=== PATIENT | female | born 1940 | race Caucasian/White ===

== ENCOUNTER 2017-01-11 06:11 | Emergency (ER) | payer MEDICARE, OTHER ==
[2017-01-11 06:11] VITALS: BP 165/71
--- NOTE | 2017-01-11 06:19 | PHYS DOC ---
Adult General Chief Complaint Chief Complaint: MECHANICAL FALL HPI HPI Patient is a 76 year old female who presents with sure pain after fall. She got out of the shower the lights were off and she is walking back to her bed when she tripped on a cane and fell landing on her right shoulder. She complains of pain around her shoulder. She denies any loss of consciousness, she denies a headache she denies hitting her head. She has chronic back pain and is on a fentanyl patch. She does not have a primary care physician as she just moved from [place] to [place]. She presents to the ER via EMS and her currently is at bedside. Her heart rates in the 50s and she states normally is in 50s to 60s. Review of Systems Review of Systems Constitutional: Denies fever or chills [] Eyes: Denies change in visual acuity, redness, or eye pain [] HENT: Denies nasal congestion or sore throat [] Respiratory: Denies cough or shortness of breath [] Cardiovascular: No additional information not addressed in HPI [] GI: Denies abdominal pain, nausea, vomiting, bloody stools or diarrhea [] : Denies dysuria or hematuria [] Musculoskeletal: Denies back pain, positive for right shoulder pain Integument: Denies rash or skin lesions [] Neurologic: Denies headache, focal weakness or sensory changes [] Endocrine: Denies polyuria or polydipsia [] All other systems were reviewed and found to be within normal limits, except as documented in this note. Current Medications Current Medications Current Medications Medications (Trade) Dose Ordered Sig/Thierry Start Time Stop Time Status Last Admin Dose Admin Acetaminophen/ Hydrocodone Bitart (Lortab 5/325) 2 tab 1X ONCE 01/11/17 07:30 01/11/17 07:31 DC 01/11/17 07:12 2 TAB Allergies Allergies Allergies Coded Allergies Type Severity Reaction Last Updated Verified naproxen Allergy Unknown 01/11/17 Yes Physical Exam Physical Exam Constitutional: Well developed, well nourished, no acute distress, non-toxic appearance. [] HENT: Normocephalic, atraumatic, bilateral external ears normal, oropharynx moist, no oral exudates, nose normal. [] Eyes: PERRLA, EOMI, conjunctiva normal, no discharge. [] Neck: Normal range of motion, no tenderness, supple, no stridor. [] Cardiovascular:Heart rate regular rhythm, no murmur [] Lungs & Thorax: Bilateral breath sounds clear to auscultation [] Abdomen: Bowel sounds normal, soft, no tenderness, no masses, no pulsatile masses. [] Skin: Warm, dry, no erythema, no rash. [] Back: No tenderness, no CVA tenderness. [] Extremities: Palpation around the right shoulder and proximal humerus without any deformity, sensation intact and motor to ulnar radial and median nerve distributions to right upper extremity, no cyanosis, no clubbing, ROM intact, no edema. [] Neurologic: Alert and oriented X 3, normal motor function, normal sensory function, no focal deficits noted. [] Psychologic: Affect normal, judgement normal, mood normal. [] Current Patient Data Vital Signs Vital Signs Date Time Temp Pulse Resp B/P (MAP) Pulse Ox O2 Delivery O2 Flow Rate FiO2 01/11/17 06:11 97.8 52 18 165/71 (102) 99 Room Air 97.8 EKG EKG [] Radiology/Procedures Radiology/Procedures [address] [address] IMAGING REPORT Signed PATIENT: SHEREE ARIAS ACCOUNT: [id number] : 1940 LOCATION: ER AGE: 76 SEX: F EXAM STATUS: REG ER ORD. PHYSICIAN: JUANA DELCID MD REASON: pain PROCEDURE: ELBOW RIGHT 3V ELBOW RIGHT 3V Clinical Indication: Right elbow pain after fall this morning. Comparison: None. Technique: Cross table frontal, oblique and lateral views of the right elbow are obtained. Findings: No acute fracture or dislocation is seen. No posterior fat pad is seen to suggest effusion or fracture. Some degenerative changes are present. Radiocapitellar alignment is maintained. Surrounding soft tissues demonstrate mild swelling and subcutaneous edema along the posterior elbow. IMPRESSION: No acute osseous injury seen. DICTATED and SIGNED BY: CORA RUANO MD DATE: 01/11/17 0837 CC: JUANA DELCID MD; NO PCP ~ [address] [address] IMAGING REPORT Signed PATIENT: SHEREE ARIAS ACCOUNT: [id number] : 1940 LOCATION: ER AGE: 76 SEX: F EXAM STATUS: REG ER ORD. PHYSICIAN: JUANA DELCID MD REASON: pain over right shoulder PROCEDURE: SHOULDER 2+V RIGHT SHOULDER 2+V RIGHT Clinical Indication: pain over right shoulder after a fall this morning Comparison: None. Technique: Internal and external rotational and Y scapular views of the right shoulder are obtained. Findings: No acute fracture or dislocation is seen. Glenohumeral and acromioclavicular joints are maintained, with degenerative changes present. Visualized ribs appear intact. Visualized lungs appear clear. Overlying soft tissues demonstrate no focal abnormality. IMPRESSION: No acute osseous injury seen. DICTATED and SIGNED BY: CORA RUANO MD DATE: 01/11/17 0741 CC: JUANA DELCID MD; NO PCP ~ Impressions: Right shoulder injury Course & Med Decision Making Course & Med Decision Making Pertinent Labs and Imaging studies reviewed. (See chart for details) Patient did not have any head or neck pain, this is a mechanical fall. Shoulder and elbow x-rays nonacute. Patient received 5 mg [place] 1 and a shoulder sling and needs to follow-up with orthopedic surgery if not better. Return precautions given. She's being discharged with 10 tablets of [place] instructed not to drive or drink alcohol while taking this medicine. Return precautions given. Her and her is agreeable to the plan to being discharged in stable condition. Dragon Disclaimer Dragon Disclaimer This electronic medical record was generated, in whole or in part, using a voice recognition dictation system. Departure Departure Impression: Primary Impression: Shoulder pain, acute Disposition: 01 HOME, SELF-CARE Condition: CRITICAL Referrals: BRENNA FRANCIS MD Patient Instructions: Shoulder Pain Additional Instructions: The x-rays of your shoulder and elbow do not show anything broken. You likely bruised it. Your being sent home with [place] which is a narcotic pain medicine. Please be careful taking this as it can make you sleepy, off balance, and confused. Do not drink or taking this medicine. You can follow-up with Dr. Francis with orthopedic surgery if your shoulder pain gets worse or does not improve over the next several days. For severe pain, numbness in your hand fingers, weakness or other concerns. JUANA DELCID MD Jan 11, 2017 06:19
[2017-01-11] MEDS ORDERED: HYDROcodone/APAP 5/325MG 1 TAB TABLET PO ONE (07:30)
--- NOTE | 2017-01-11 07:46 | RAD ---
SHOULDER 2+V RIGHT Clinical Indication: pain over right shoulder after a fall this morning Comparison: None. Technique: Internal and external rotational and Y scapular views of the right shoulder are obtained. Findings: No acute fracture or dislocation is seen. Glenohumeral and acromioclavicular joints are maintained, with degenerative changes present. Visualized ribs appear intact. Visualized lungs appear clear. Overlying soft tissues demonstrate no focal abnormality. IMPRESSION: No acute osseous injury seen.
--- NOTE | 2017-01-11 08:43 | RAD ---
ELBOW RIGHT 3V Clinical Indication: Right elbow pain after fall this morning. Comparison: None. Technique: Cross table frontal, oblique and lateral views of the right elbow are obtained. Findings: No acute fracture or dislocation is seen. No posterior fat pad is seen to suggest effusion or fracture. Some degenerative changes are present. Radiocapitellar alignment is maintained. Surrounding soft tissues demonstrate mild swelling and subcutaneous edema along the posterior elbow. IMPRESSION: No acute osseous injury seen.
== END 2017-01-11 09:20 | disposition home or self-care (01) ==
LOC: ER 06:11
DX: M25.511 Pain in right shoulder (principal); G89.29 Other chronic pain; Z88.8 Allergy status to other drugs, medicaments and biological substances; W01.0XXA Fall on same level from slipping, tripping and stumbling without subsequent striking against object, initial encounter; Y93.89 Activity, other specified; Y99.8 Other external cause status; Y92.89 Other specified places as the place of occurrence of the external cause
CPT/HCPCS: 73030; 73080; 99284

== ENCOUNTER → 2017-02-25 | Outpatient (CLI) | payer MEDICARE, OTHER | END | disposition home or self-care (01) | LOC: KCIC US 09:55 | DX: Z12.31 Encounter for screening mammogram for malignant neoplasm of breast (principal); M75.101 Unspecified rotator cuff tear or rupture of right shoulder, not specified as traumatic; M81.0 Age-related osteoporosis without current pathological fracture; M85.88 Other specified disorders of bone density and structure, other site; G62.9 Polyneuropathy, unspecified; M79.89 Other specified soft tissue disorders; Z78.0 Asymptomatic menopausal state | CPT/HCPCS: 77067; 77080; 93970 ==

== ENCOUNTER → 2017-06-18 | Outpatient (CLI) | payer MEDICARE, OTHER | END | disposition home or self-care (01) | LOC: KCIC MRI 11:18 | DX: M48.54XA Collapsed vertebra, not elsewhere classified, thoracic region, initial encounter for fracture (principal); M48.061 Spinal stenosis, lumbar region without neurogenic claudication; M47.892 Other spondylosis, cervical region; M47.894 Other spondylosis, thoracic region; M47.896 Other spondylosis, lumbar region | CPT/HCPCS: 72146; 72148 ==

== ENCOUNTER → 2017-08-21 | Outpatient (CLI) | payer MEDICARE, OTHER ==
[~2017-08-21] MED LIST: IOHEXOL 180 MG/ML 10 ML VIAL.; LIDOCAINE 1% PF 2 ML VIAL.; methylPREDNISolone ACETATE 40 MG/ML VIAL.; methylPREDNISolone ACETATE 80 MG/ML VIAL.
== END ==
LOC: PNCL 07:41
DX: M51.16 Intervertebral disc disorders with radiculopathy, lumbar region (principal); M96.1 Postlaminectomy syndrome, not elsewhere classified; M47.26 Other spondylosis with radiculopathy, lumbar region; M48.062 Spinal stenosis, lumbar region with neurogenic claudication; I10 Essential (primary) hypertension; G47.30 Sleep apnea, unspecified; G47.419 Narcolepsy without cataplexy; Z85.828 Personal history of other malignant neoplasm of skin; M81.0 Age-related osteoporosis without current pathological fracture; Z88.8 Allergy status to other drugs, medicaments and biological substances; Z79.82 Long term (current) use of aspirin; Z79.899 Other long term (current) drug therapy; Z82.0 Family history of epilepsy and other diseases of the nervous system; Z72.89 Other problems related to lifestyle
CPT/HCPCS: 62323; J1030; J1040; Q9965

== ENCOUNTER → 2017-09-07 | Outpatient (CLI) | payer MEDICARE, OTHER ==
[~2017-09-07] MED LIST changes: -LIDOCAINE 1% PF 2 ML VIAL.; +LIDOCAINE 2% PF 2ML VIAL.
== END | disposition home or self-care (01) ==
LOC: PNCL 08:38
DX: M51.16 Intervertebral disc disorders with radiculopathy, lumbar region (principal); M48.062 Spinal stenosis, lumbar region with neurogenic claudication; M96.1 Postlaminectomy syndrome, not elsewhere classified; Z88.5 Allergy status to narcotic agent; Z88.8 Allergy status to other drugs, medicaments and biological substances; Z79.82 Long term (current) use of aspirin; Z79.899 Other long term (current) drug therapy; M81.0 Age-related osteoporosis without current pathological fracture; I10 Essential (primary) hypertension; Z82.0 Family history of epilepsy and other diseases of the nervous system; G47.419 Narcolepsy without cataplexy; Z72.89 Other problems related to lifestyle; Z85.828 Personal history of other malignant neoplasm of skin
CPT/HCPCS: 62323; J1030; J1040; J2001; Q9965

== ENCOUNTER 2017-10-19 23:50 | Emergency (ER) | payer MEDICARE, OTHER ==
[~2017-10-19] VITALS: Ht 154.9 cm; Wt 80.7 kg
[~2017-10-19 23:50] MED LIST changes: +ACET500T68 PO; +ALEN70TA3 PO; +ASPI81TA50 PO; +ATOR40TA PO; +CALC-77 PO; +DICL100G18 TP; +DOCU-109 PO; +ESCITALOPRAM OX10 MG PO; +ESTR42.53 VG; +FENT1PAT89 TP; +FURO-68 PO; +GABA-586 PO; -IOHEXOL 180 MG/ML 10 ML VIAL.; -LIDOCAINE 2% PF 2ML VIAL.; +LOSA25TA PO; +MODA200T2 PO; +MULT1TAB52 PO; +PANT20TA2 PO; +POTA20PA30 PO; +PRAM0.255 PO; +RANI150T21 PO; +TRIA15CR2 TP; +TROS20TA2 PO; -methylPREDNISolone ACETATE 40 MG/ML VIAL.; -methylPREDNISolone ACETATE 80 MG/ML VIAL.
--- NOTE | 2017-10-20 00:24 | PHYS DOC ---
Past Medical History Past Medical History: GERD, Hypertension Alcohol Use: Rarely Drug Use: None Adult General HPI HPI Patient is a 77 year old female who presents with low blood pressure and nausea. She was getting ready to go to bed when she suddenly felt nauseated. She then decided to check her blood pressure and noticed that it was 82 systolic. This made her nervous and she called 911. She denies any vomiting, syncope, abdominal pain, chest pain, shortness of breath or any other acute symptoms besides the nausea. She admits to bilateral lower extremity edema and pain. Review of Systems Review of Systems Constitutional: Denies fever or chills Eyes: Denies change in visual acuity, redness, or eye pain HENT: Denies nasal congestion or sore throat Respiratory: Denies cough or shortness of breath Cardiovascular: No additional information not addressed in HPI GI: Denies abdominal pain, nausea, vomiting, bloody stools or diarrhea : Denies dysuria or hematuria Musculoskeletal: Chronic back pain, on fentanyl patch, has compression fracture Integument: Denies rash or skin lesions Neurologic: Denies headache, focal weakness or sensory changes Endocrine: Denies polyuria or polydipsia All other systems were reviewed and found to be within normal limits, except as documented in this note. Family History Family History Noncontributory Current Medications Current Medications Current Medications Medications (Trade) Dose Ordered Sig/Thierry Start Time Stop Time Status Last Admin Dose Admin Dextrose (Dextrose 50%-Water Syringe) 25 gm 1X ONCE 10/20/17 02:00 10/20/17 02:17 DC 10/20/17 02:06 25 GM Ringer's Solution 500 ml @ 500 mls/hr 1X ONCE 10/20/17 02:00 10/20/17 02:59 DC 10/20/17 02:00 500 MLS/HR Sodium Chloride 1,000 ml @ 1,000 mls/hr 1X ONCE 10/20/17 00:30 10/20/17 01:29 DC Allergies Allergies Allergies Coded Allergies Type Severity Reaction Last Updated Verified codeine Allergy Intermediate Nausea and Vomiting 08/21/17 Yes naproxen Allergy Intermediate 08/21/17 Yes Physical Exam Physical Exam Constitutional: Well developed, well nourished, no acute distress, non-toxic appearance HENT: Normocephalic, atraumatic, bilateral external ears normal, oropharynx moist, no oral exudates, nose normal. Eyes: PERRLA, EOMI, conjunctiva normal, no discharge. Neck: Normal range of motion, no tenderness, supple, no stridor. Cardiovascular:Heart rate regular rhythm, no murmur Lungs & Thorax: Bilateral breath sounds clear to auscultation Abdomen: Bowel sounds normal, soft, no tenderness, no masses, no pulsatile masses. Skin: Warm, dry Back: No CVA tenderness Extremities: Bilateral lower extremity edema with chronic peripheral vascular changes, appearance of faint early erysipelas to the right lower extremity Neurologic: Alert and oriented X 3, CNII-12 GIB Psychologic: Affect normal, judgement normal, mood normal. Current Patient Data Vital Signs Vital Signs Date Time Temp Pulse Resp B/P (MAP) Pulse Ox O2 Delivery O2 Flow Rate FiO2 10/20/17 03:15 52 18 94/51 (65) 97 10/19/17 23:50 98.8 Room Air 98.8 Lab Values Laboratory Tests Test 10/20/17 00:15 10/20/17 00:20 10/20/17 02:17 White Blood Count 5.1 x10^3/uL (4.0-11.0) Red Blood Count 3.98 x10^6/uL (3.50-5.40) Hemoglobin 12.3 g/dL (12.0-15.5) Hematocrit 36.3 % (36.0-47.0) Mean Corpuscular Volume 91 fL (79-100) Mean Corpuscular Hemoglobin 31 pg (25-35) Mean Corpuscular Hemoglobin Concent 34 g/dL (31-37) Red Cell Distribution Width 14.4 % (11.5-14.5) Platelet Count 219 x10^3/uL (140-400) Neutrophils (%) (Auto) 39 % (31-73) Lymphocytes (%) (Auto) 45 % (24-48) Monocytes (%) (Auto) 11 % (0-9) H Eosinophils (%) (Auto) 4 % (0-3) H Basophils (%) (Auto) 1 % (0-3) Neutrophils # (Auto) 2.0 x10^3uL (1.8-7.7) Lymphocytes # (Auto) 2.3 x10^3/uL (1.0-4.8) Monocytes # (Auto) 0.6 x10^3/uL (0.0-1.1) Eosinophils # (Auto) 0.2 x10^3/uL (0.0-0.7) Basophils # (Auto) 0.0 x10^3/uL (0.0-0.2) Sodium Level 147 mmol/L (136-145) H Potassium Level 3.3 mmol/L (3.5-5.1) L Chloride Level 109 mmol/L (98-107) H Carbon Dioxide Level 33 mmol/L (21-32) H Anion Gap 5 (6-14) L Blood Urea Nitrogen 14 mg/dL (7-20) Creatinine 0.8 mg/dL (0.6-1.0) Estimated GFR (Cockcroft-Gault) 69.7 BUN/Creatinine Ratio 18 (6-20) Glucose Level 47 mg/dL (70-99) L Calcium Level 9.0 mg/dL (8.5-10.1) Total Bilirubin 0.3 mg/dL (0.2-1.0) Aspartate Amino Transferase (AST) 22 U/L (15-37) Alanine Aminotransferase (ALT) 25 U/L (14-59) Alkaline Phosphatase 77 U/L (46-116) Troponin I Quantitative < 0.017 ng/mL (0.000-0.055) JL-Qzv-H-Type Natriuretic Peptide 179 pg/mL (0-449) Total Protein 6.4 g/dL (6.4-8.2) Albumin 3.3 g/dL (3.4-5.0) L Albumin/Globulin Ratio 1.1 (1.0-1.7) Lipase 82 U/L (73-393) Lactic Acid Level 1.3 mmol/L (0.4-2.0) Urine Collection Type U cath Urine Color Yellow Urine Clarity Clear Urine pH 5.0 Urine Specific [place] >=1.030 Urine Protein Negative mg/dL (NEG-TRACE) Urine Glucose (UA) >=1000 mg/dL (NEG) Urine Ketones (Stick) Trace mg/dL (NEG) Urine Blood Negative (NEG) Urine Nitrite Negative (NEG) Urine Bilirubin Negative (NEG) Urine Urobilinogen Dipstick 0.2 mg/dL (0.2 mg/dL) Urine Leukocyte Esterase Small (NEG) Urine RBC Occ /HPF (0-2) Urine WBC 20-40 /HPF (0-4) Urine Squamous Epithelial Cells Few /LPF Urine Bacteria Few /HPF (0-FEW) Urine Hyaline Casts Moderate /HPF Urine Mucus Marked /LPF Laboratory Tests 10/20/17 00:15 Laboratory Tests 10/20/17 00:15 EKG EKG EKG interpreted by me at 12:10 AM reveals sinus rhythm at [address] or T -wave changes consistent with acute ischemia, poor R-wave progression, QTC 430 ms[] Radiology/Procedures Radiology/Procedures [] Impressions: HYPOTENSION, RESOLVED MALAISE AND FATIGUE Course & Med Decision Making Course & Med Decision Making Pertinent Labs and Imaging studies reviewed. (See chart for details) Differential includes but not limited to: Transient hypotension from supratherapeutic Lasix, transient hypotension from vasovagal reaction from nausea, body depletion, sepsis, metabolic abnormality 5:55 AM. Patient was observed here in the emergency department for a significant amount of time. She has been asymptomatic. Resting comfortably. She did get up and ambulate without any lightheadedness or focal deficits. Her blood pressure is remained borderline low but this may be a normal for her. She is stable for discharge. Dragon Disclaimer Dragon Disclaimer This electronic medical record was generated, in whole or in part, using a voice recognition dictation system. Departure Departure Disposition: 01 HOME, SELF-CARE Condition: STABLE Referrals: JUAN SANDS MD (PCP) Patient Instructions: Hypotension OSCAR GUTHRIE DO Oct 20, 2017 00:24
[2017-10-20] MEDS ORDERED: IV NORMAL SALINE 1000ML BAG 1,000 ML IV ONE (00:30)
[2017-10-20 00:32] LABS: BASO % 1 % (0-3); EOS # 0.2 x10^3/uL (0.0-0.7); EOS % 4 % (0-3); HEMATOCRIT 36.3 % (36.0-47.0); HEMOGLOBIN 12.3 g/dL (12.0-15.5); LYMPH # 2.3 x10^3/uL (1.0-4.8); LYMPH % 45 % (24-48); MEAN CORPUSCULAR HEMOGLOBIN 31 pg (25-35); MEAN CORPUSCULAR HGB CONC 34 g/dL (31-37); MEAN CORPUSCULAR VOLUME 91 fL (79-100); MONO # 0.6 x10^3/uL (0.0-1.1); MONO % 11 % (0-9); NEUT % 39 % (31-73); PLATELET COUNT 219 x10^3/uL (140-400); RED BLOOD COUNT 3.98 x10^6/uL (3.50-5.40); RED CELL DISTRIBUTION WIDTH 14.4 % (11.5-14.5); WHITE BLOOD COUNT 5.1 x10^3/uL (4.0-11.0)
[2017-10-20 00:40] LABS: CREATININE 0.8 mg/dL (0.6-1.0); GFR 69.7; POTASSIUM 3.3 mmol/L (3.5-5.1)
[2017-10-20 00:55] LABS: ALBUMIN 3.3 g/dL (3.4-5.0); ALBUMIN/GLOBULIN RATIO 1.1 (1.0-1.7); TOTAL BILIRUBIN 0.3 mg/dL (0.2-1.0); TOTAL PROTEIN 6.4 g/dL (6.4-8.2)
[2017-10-20] MEDS ORDERED: IV RINGERS,LACTATED 500ML 500 ML IV ONE (02:00)
[2017-10-20] MEDS ORDERED: DEXTROSE 50% 25 GM / 50ML DISP.SYRIN. IV ONE (02:00)
[2017-10-20 02:27] LABS: BILIRUBIN,URINE NEGATIVE (NEG); CLARITY,URINE CLEAR; COLOR,URINE YELLOW; NITRITE,URINE NEGATIVE (NEG); PROTEIN,URINE NEGATIVE (NEG-TRACE); UROBILINOGEN,URINE 0.2 mg/dL (0.2 mg/dL)
[2017-10-20 02:33] LABS: BACTERIA,URINE FEW /HPF (0-FEW); HYALINE CASTS, URINE MODERATE /HPF; RBC,URINE OCC /HPF (0-2); SQUAMOUS EPITHELIAL CELL,UR FEW /LPF; WBC,URINE 20-40 /HPF (0-4)
[2017-10-20 05:42] VITALS: BP 129/58
--- NOTE | 2017-10-20 06:49 | EKG ---
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
--- NOTE | 2017-10-20 07:40 | RAD ---
EXAM: CHEST AP ONLY DATE: 10/20/2017 12:19 AM INDICATION: HYPOTENSION, MALAISE. COMPARISON: 04/28/2017 FINDINGS/ IMPRESSION: The heart is moderately large, accentuated by patient rotation. Large hiatal hernia. Nonspecific bilateral interstitial prominence, may be seen with early interstitial edema or atypical infection among other etiology. No lobar airspace consolidation. No pleural effusion or pneumothorax. Electronically signed by: John Barton MD (10/20/2017 7:37 AM) [facility]
--- NOTE | 2017-10-27 10:54 | VNOTE ---
CALL BACK NOTE CALL BACK Microbiology 10/20/17 Urine Culture - Final, Complete 10/20/17 Urine Culture Result 1 (SISSY) - Final, Complete 10/20/17 Antimicrobic Susceptibility - Final, Complete Positive urine culture, called and spoke to patient, she states she is on doxycycline for cellulitis, has no UTI symptoms. Encouraged her to finish the doxycycline FORTUNATO KIM APRN Oct 27, 2017 10:54
== END 2017-10-20 06:30 | disposition home or self-care (01) ==
LOC: ER 23:50
DX: R53.83 Other fatigue (principal); R53.1 Weakness; R60.0 Localized edema; R11.0 Nausea; G89.29 Other chronic pain; M54.5 Low back pain; I10 Essential (primary) hypertension; K21.9 Gastro-esophageal reflux disease without esophagitis; Z88.5 Allergy status to narcotic agent
CPT/HCPCS: 36415; 71045; 80053; 81001; 83605; 83690; 83880; 84484; 85025; 87086; 93005; 96374; 99285; J7120; 87186; J7042

== ENCOUNTER → 2017-11-19 | Outpatient (CLI) | payer MEDICARE, OTHER ==
[2017-10-20 05:42] VITALS: BP 129/58
[~2017-11-19] MED LIST changes: +IOHEXOL 180 MG/ML 10 ML VIAL. ONE; +LIDOCAINE 2% PF 2ML VIAL. ONE; +methylPREDNISolone ACETATE 40 MG/ML VIAL. ONE; +methylPREDNISolone ACETATE 80 MG/ML VIAL. ONE
--- NOTE | 2017-11-19 19:29 | PAIN ---
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 HISTORY OF PRESENT ILLNESS: The patient is a 77-year-old female who returns for followup status post lumbar epidural steroid injection x 2, last seen 09/07/2017. The patient reports she did well for about 1-2 weeks after the injection with about a 50% improvement, but the pain returned after about 2 weeks in the low back and the bilateral lower extremities as it was previously, mostly in the posterior lateral thighs, anterior thighs, medial thighs, medial knees, also with some pain in the hips and knees separately. The patient reports it is worse with walking, standing, changing positions, much better with doing pool therapy, which she is currently doing about twice a week. She reports when she is in the pool, she feels very good, not only with her back, but with her hips and knees as well and has almost zero pain with the water aerobics she has been doing. The patient reports her pain is a 9 on a scale of 10 at its worst, 7 on average, 5 at its least and is a 7 today. The patient reports it is constant, sharp, shooting, also some radiating pain that can be dull and aching at times in the lower extremities. The patient reports no new motor or sensory deficits, no new bowel or bladder incontinence, better with sitting or lying down, does not bother her from sleep at night. PHYSICAL EXAMINATION: VITAL SIGNS: The patient's blood pressure 158/87, pulse 68, respirations are 16, temperature is 98.1 degrees Fahrenheit, weight is 181 pounds. GENERAL: The patient is awake, alert, oriented, appropriate, very pleasant demeanor. HEENT: Head is normocephalic, atraumatic. Extraocular movements are symmetrical. Oral cavity: Mucous membranes moist and pink. Dentition is intact. NECK: Shows anterior throat supple without palpable lymphadenopathy noted. Swallow reflex symmetrical. CHEST: Shows normal with inspection. Breath sounds clear to auscultation bilaterally. HEART: Shows S1, S2 clear. No murmurs auscultated. ABDOMEN: Soft, nontender, nondistended. No palpable organomegaly is noted. No rebound or guarding demonstrated. BACK: Shows spine grossly in the midline, increase slightly of the thoracic kyphosis and mild flattening of lordotic curvature with well-healed surgical scar in the lumbar distribution. Lumbar paraspinous muscle shows symmetrical on inspection and palpation shows some moderate tenderness diffusely bilaterally, but only diffusely throughout the middle and lower distribution of the paraspinous muscle. No tenderness over the sacrum or sacroiliac regions. EXTREMITIES: Lower extremities show deep tendon reflexes at 1+ in the patellar and tendo calcaneus tendons. Motor exam is strong approximately 4 on a scale of 5, but symmetrical dorsiflexion, extension, quadriceps and hamstring flexion equal. Peripheral pulses are 1+ posterior tibia bilaterally. Options were discussed with the patient. The patient's old chart was reviewed as her current medication regimen updated. Current review of systems updated today as well. We will proceed with a third in a series of lumbar epidural steroid injection today with fluoroscopic guidance. Risks were again discussed including, but not limited to bleeding, infection, possibility of epidural hematoma and subsequent neurological compromise, dural puncture, headaches, spinal cord and/or nerve damage, side effects of steroid medication and poor results regarding pain control. The patient understands and wished to proceed. The patient is to return to clinic in approximately 2 weeks for followup. She was counseled to return appointment, activity level and side effects to be aware of. DIAGNOSES: Lumbar radiculopathy with lumbar degenerative disk disease, post-lumbar laminectomy syndrome, spinal stenosis with neurogenic claudication. PROCEDURE: Lumbar epidural steroid injection, translaminar approach at L3-L4 level using C-arm fluoroscopic guidance under sterile prep and drape using local anesthetic. MEDICATION INJECTED: A total of 120 mg of Depo-Medrol plus 10 mL of preservative-free normal saline and 2 mL of Isovue for contrast. CONDITION AT DISCHARGE: Stable. The patient tolerated procedure well, had no complications. RENARD LAY MD DR: LUKE/lupe JOB#: [id number] / [id number]
== END | disposition home or self-care (01) ==
LOC: PNCL 10:26
PROVIDERS: ATTEND Anesthesiology
DX: M51.16 Intervertebral disc disorders with radiculopathy, lumbar region (principal); M96.1 Postlaminectomy syndrome, not elsewhere classified; M48.062 Spinal stenosis, lumbar region with neurogenic claudication; I10 Essential (primary) hypertension; K21.9 Gastro-esophageal reflux disease without esophagitis; G89.29 Other chronic pain; Z79.899 Other long term (current) drug therapy; Z79.82 Long term (current) use of aspirin; Z88.5 Allergy status to narcotic agent; Z98.890 Other specified postprocedural states
CPT/HCPCS: 62323; J1030; J1040; J2001; Q9965

== ENCOUNTER 2018-01-12 08:33 | Emergency (ER) | payer MEDICARE, OTHER ==
[~2018-01-12] VITALS: Ht 154.9 cm; Wt 82.6 kg
[~2018-01-12 08:33] MED LIST changes: -GABA-586 PO; +GABA300C18 PO; -IOHEXOL 180 MG/ML 10 ML VIAL. ONE; -LIDOCAINE 2% PF 2ML VIAL. ONE; -methylPREDNISolone ACETATE 40 MG/ML VIAL. ONE; -methylPREDNISolone ACETATE 80 MG/ML VIAL. ONE
[2018-01-12] MEDS ORDERED: fentaNYL 12MCG/HR PATCH 1 PATCH PATCH.TD72 TD STA (08:41)
--- NOTE | 2018-01-12 08:59 | PHYS DOC ---
Past Medical History Past Medical History: Arthritis, GERD, Hypertension Alcohol Use: Rarely Drug Use: None Adult General Chief Complaint Chief Complaint: LOWER EXT PAIN HPI HPI Patient is a 77 year old female with history of hypertension, arthritis to her left hip, who presents today complaining of 5 out of 10 left hip pain radiating to the left lower extremity worse on weight bearing described as sharp and intermittent that has been going on since yesterday afternoon. Patient denies any known injury. She states the pain began after she sat on her computer for a while. Patient states she normally has a fentanyl patch but she realized she didn't have one this morning after she took a shower. Patient states she took Tylenol for her pain with no relief. She also states she took gabapentin as well with no relief. Review of Systems Review of Systems Constitutional: Denies fever or chills [] Eyes: Denies change in visual acuity, redness, or eye pain [] HENT: Denies nasal congestion or sore throat [] Respiratory: Denies cough or shortness of breath [] Cardiovascular: No additional information not addressed in HPI [] GI: Denies abdominal pain, nausea, vomiting, bloody stools or diarrhea [] : Denies dysuria or hematuria [] Musculoskeletal: Reports left hip pain radiating to the left lower extremity Integument: Denies rash or skin lesions [] Neurologic: Denies headache, focal weakness or sensory changes [] All other systems were reviewed and found to be within normal limits, except as documented in this note. Current Medications Current Medications Current Medications Medications (Trade) Dose Ordered Sig/Thierry Start Time Stop Time Status Last Admin Dose Admin Fentanyl (Duragesic 12mcg/ Hr Patch) 1 patch 1X STAT 01/12/18 08:41 01/12/18 08:48 DC 01/12/18 09:00 1 PATCH Allergies Allergies Allergies Coded Allergies Type Severity Reaction Last Updated Verified codeine Allergy Intermediate Nausea and Vomiting 08/21/17 Yes naproxen Allergy Intermediate 08/21/17 Yes Physical Exam Physical Exam Constitutional: Well developed, well nourished, no acute distress, non-toxic appearance. [] HENT: Normocephalic, atraumatic, bilateral external ears normal, oropharynx moist, no oral exudates, nose normal. [] Eyes: PERRLA, EOMI, conjunctiva normal, no discharge. [] Neck: Normal range of motion, no tenderness, supple, no stridor. [] Cardiovascular:Heart rate regular rhythm, no murmur [] Lungs & Thorax: Bilateral breath sounds clear to auscultation [] Abdomen: Bowel sounds normal, soft, no tenderness, no masses, no pulsatile masses. [] Skin: Warm, dry, no erythema, no rash. [] Back: No tenderness, no CVA tenderness. [] Extremities: Bilateral lower extremities with no obvious deformity. No tenderness, no cyanosis, no clubbing, slightly Limited external rotation to the left hip due to pain, adequate internal rotation to the left hip, adequate flexion and extension of the left lower extremity, +1 bilateral lower extremity edema, patient states this is chronic, she also has chronic cellulitis to the right lower extremity that her PCP follows up with. Neurologic: Alert and oriented X 3, normal motor function, normal sensory function, no focal deficits noted. [] Psychologic: Affect normal, judgement normal, mood normal. [] Current Patient Data Vital Signs Vital Signs Date Time Temp Pulse Resp B/P (MAP) Pulse Ox O2 Delivery O2 Flow Rate FiO2 01/12/18 09:00 18 96 Room Air EKG EKG [] Radiology/Procedures Radiology/Procedures []PROCEDURE: HIP LEFT 2V WITH PELVIS Pelvis with left hip, 3 views, 01/12/2018: HISTORY: Chronic hip pain The bony structures are demineralized. There is severe narrowing of the left hip joint with subchondral sclerosis, cyst formation and marginal spurring. The right hip joint space is well maintained with only mild marginal spurring. No fracture or dislocation is identified. Degenerative changes are noted in the lower lumbar spine. Radiopacities compatible with markers related to a surgical mesh are projected over the lower pelvis. Scattered arterial calcifications are present. IMPRESSION: Severe osteoarthritis at the left hip joint. Electronically signed by: Dale Polanco MD (01/12/2018 9:01 AM) [facility] DICTATED and SIGNED BY: DALE POLANCO MD DATE: 01/12/18 0859 Course & Med Decision Making Course & Med Decision Making Pertinent Labs and Imaging studies reviewed. (See chart for details) This is a 77-year-old female patient presenting to the ED today with left hip pain, no known injury, has history of arthritis to her left hip. Left hip xrays interpreted by radiologist- Severe osteoarthritis at the left hip joint. Patient was given a fentanyl patch 12 g in the ED. She is up and ambulating with no difficulties. She was discharged back home. She has a PCP. She states she has an appointment next week. Instructed patient to follow-up with her PCP and continue using gabapentin and Tylenol as well for her pain. Provided return precautions and discharged in stable condition. Dragon Disclaimer Dragon Disclaimer This electronic medical record was generated, in whole or in part, using a voice recognition dictation system. Departure Departure Impression: Primary Impression: Hip pain, left Additional Impression: Arthritis of left hip Disposition: 01 HOME, SELF-CARE Condition: STABLE Referrals: JUAN SANDS MD (PCP) Follow-up next week Patient Instructions: Arthritis, Degenerative-Brief, Hip Pain Additional Instructions: You were evaluated in the emergency room for left hip pain and noted to have arthritis in the hip. Please follow-up with your doctor next week. Continue using your pain medicines at home as ordered. Problem Qualifiers FORTUNATO KIM APRN Jan 12, 2018 08:59
--- NOTE | 2018-01-12 09:04 | RAD ---
Pelvis with left hip, 3 views, 01/12/2018: HISTORY: Chronic hip pain The bony structures are demineralized. There is severe narrowing of the left hip joint with subchondral sclerosis, cyst formation and marginal spurring. The right hip joint space is well maintained with only mild marginal spurring. No fracture or dislocation is identified. Degenerative changes are noted in the lower lumbar spine. Radiopacities compatible with markers related to a surgical mesh are projected over the lower pelvis. Scattered arterial calcifications are present. IMPRESSION: Severe osteoarthritis at the left hip joint. Electronically signed by: Dale Polanco MD (01/12/2018 9:01 AM) [facility]
[2018-01-12 09:15] VITALS: BP 130/72
== END 2018-01-12 09:28 | disposition home or self-care (01) ==
LOC: ER 08:33
DX: M25.552 Pain in left hip (principal); M16.12 Unilateral primary osteoarthritis, left hip; K21.9 Gastro-esophageal reflux disease without esophagitis; I10 Essential (primary) hypertension; Z88.5 Allergy status to narcotic agent; Z88.8 Allergy status to other drugs, medicaments and biological substances
CPT/HCPCS: 73502; 99283

== ENCOUNTER 2018-02-13 18:17 | Emergency (ER) | payer MEDICARE, OTHER ==
[~2018-02-13] VITALS: Ht 154.9 cm; Wt 82.6 kg
--- NOTE | 2018-02-13 18:36 | PHYS DOC ---
Past Medical History Past Medical History: Arthritis, GERD, Hypertension Additional Past Medical Histor: Narcolepsy. Past Surgical History: Other Additional Past Surgical Histo: Spinal stenosis [id number],bladder lift 2018. Alcohol Use: Rarely Drug Use: None Adult General Chief Complaint Chief Complaint: MECHANICAL FALL HPI HPI Patient is a 77 year old female who presents with head and back pain. Patient had a mechanical fall backwards striking her head on hard floor. No loss of consciousness. This happened approximately an hour or so prior to arrival. Patient laid on the floor for a while until realizing that no help was forthcoming and so was able to crawl to her phone and call her who called EMS. Patient was brought in by EMS with a c-collar in place. There was no syncopal event. No chest pain or palpitations. Patient normally walks with a walker and was standing and from the stove when this happened. She has a history of previous back surgery[] Review of Systems Review of Systems Constitutional: Denies fever or chills [] Eyes: Denies change in visual acuity, redness, or eye pain [] HENT: Denies nasal congestion or sore throat [] Respiratory: Denies cough or shortness of breath [] Cardiovascular: No chest pain or palpitations[] GI: Denies abdominal pain, nausea, vomiting, bloody stools or diarrhea [] : Denies dysuria or hematuria [] Musculoskeletal: Denies back pain or joint pain [] Integument: Denies rash or skin lesions [] Neurologic: Denies focal weakness or sensory changes [] Endocrine: Denies polyuria or polydipsia [] All other systems were reviewed and found to be within normal limits, except as documented in this note. Allergies Allergies Allergies Coded Allergies Type Severity Reaction Last Updated Verified codeine Allergy Intermediate Nausea and Vomiting 08/21/17 Yes naproxen Allergy Intermediate 08/21/17 Yes Physical Exam Physical Exam Constitutional: Well developed, well nourished, no acute distress, non-toxic appearance. [] HENT: Normocephalic, atraumatic, bilateral external ears normal, oropharynx moist, no oral exudates, nose normal. [] Eyes: PERRLA, EOMI, conjunctiva normal, no discharge. [] Neck: Normal range of motion, no tenderness, supple, no stridor. [] Cardiovascular:Heart rate regular rhythm, no murmur [] Lungs & Thorax: Bilateral breath sounds clear to auscultation [] Abdomen: Bowel sounds normal, soft, no tenderness, no masses, no pulsatile masses. Pelvis is stable and 3 planes. [] Skin: Warm, dry, no erythema, no rash. [] Back: Diffuse tenderness in the lumbar spine, no step-off, no crepitus, no CVA tenderness. [] Extremities: Tenderness around the right hip, patient is distal neurovascularly intact. no cyanosis, no clubbing, ROM intact, no edema. [] Neurologic: Alert and oriented X 3, normal motor function, normal sensory function, no focal deficits noted. [] Psychologic: Affect normal, judgement normal, mood normal. [] Current Patient Data Vital Signs Vital Signs Date Time Temp Pulse Resp B/P (MAP) Pulse Ox O2 Delivery O2 Flow Rate FiO2 02/13/18 18:17 98.5 69 18 191/88 (122) 97 Room Air 98.5 Lab Values Laboratory Tests Test 02/13/18 18:25 White Blood Count 4.1 x10^3/uL (4.0-11.0) Red Blood Count 4.13 x10^6/uL (3.50-5.40) Hemoglobin 12.4 g/dL (12.0-15.5) Hematocrit 36.8 % (36.0-47.0) Mean Corpuscular Volume 89 fL (79-100) Mean Corpuscular Hemoglobin 30 pg (25-35) Mean Corpuscular Hemoglobin Concent 34 g/dL (31-37) Red Cell Distribution Width 14.0 % (11.5-14.5) Platelet Count 207 x10^3/uL (140-400) Neutrophils (%) (Auto) 64 % (31-73) Lymphocytes (%) (Auto) 24 % (24-48) Monocytes (%) (Auto) 8 % (0-9) Eosinophils (%) (Auto) 3 % (0-3) Basophils (%) (Auto) 1 % (0-3) Neutrophils # (Auto) 2.6 x10^3uL (1.8-7.7) Lymphocytes # (Auto) 1.0 x10^3/uL (1.0-4.8) Monocytes # (Auto) 0.3 x10^3/uL (0.0-1.1) Eosinophils # (Auto) 0.1 x10^3/uL (0.0-0.7) Basophils # (Auto) 0.0 x10^3/uL (0.0-0.2) Prothrombin Time 13.2 SEC (11.7-14.0) Prothrombin Time INR 1.0 (0.8-1.1) Sodium Level 145 mmol/L (136-145) Potassium Level 3.7 mmol/L (3.5-5.1) Chloride Level 106 mmol/L (98-107) Carbon Dioxide Level 31 mmol/L (21-32) Anion Gap 8 (6-14) Blood Urea Nitrogen 15 mg/dL (7-20) Creatinine 0.8 mg/dL (0.6-1.0) Estimated GFR (Cockcroft-Gault) 69.7 BUN/Creatinine Ratio 19 (6-20) Glucose Level 115 mg/dL (70-99) H Calcium Level 9.0 mg/dL (8.5-10.1) Total Bilirubin 0.2 mg/dL (0.2-1.0) Aspartate Amino Transferase (AST) 26 U/L (15-37) Alanine Aminotransferase (ALT) 26 U/L (14-59) Alkaline Phosphatase 72 U/L (46-116) Total Protein 7.0 g/dL (6.4-8.2) Albumin 3.3 g/dL (3.4-5.0) L Albumin/Globulin Ratio 0.9 (1.0-1.7) L Laboratory Tests 02/13/18 18:25 Laboratory Tests 02/13/18 18:25 EKG EKG [] Radiology/Procedures Radiology/Procedures Chest x-ray shows no acute features AP pelvis with two-view right hip HISTORY: Right hip pain after a fall. FINDINGS: Right hip joint is intact. There is no evidence of an acute or displaced fracture. Severe primary osteoarthritis at the left hip with severe joint space narrowing, subchondral lucency and sclerosis. There is also flattening and deformity of the left femoral head subchondral surface. There is extensive stool in the visualized abdomen. Lumbar spondylosis. IMPRESSION: 1. No definite acute fracture at the right hip. If of continued concern, consider MRI. 2. Severe primary osteoarthritis of the left hip. CT LUMBAR SPINE WO CONTRAST Indication: FALL WITH LOW BACK INJURY Exposure: One or more of the following individualized dose reduction techniques were utilized for this examination: 1. Automated exposure control 2. Adjustment of the mA and/or kV according to patient size 3. Use of iterative reconstruction technique. Comparison: None are available. Contrast: None FINDINGS: Fracture: Severe compression fracture of the T12 vertebral body. Age indeterminate by the images. Other vertebral bodies demonstrate maintained height. Spondylosis: Multilevel degenerative spondylosis, with disc disease. There is at least mild stenosis involving the lower lumbar levels, spinal canal and neural foramina. AlignmentNo significant sagittal plane subluxation. Bones: Spondylolysis is suspected of the right L5.. Paraspinal soft tissues: Unremarkable Visualized aorta: Calcified. There is an endovascular stent identified and presumably the right renal artery. Visualized kidneys: No evidence of obstructive calculus Impression: 1. Severe compression fracture of T12 vertebral body, age indeterminate by imaging. 2. Degenerative spondylosis with stenosis. CT HEAD AND CERVICAL SPINE WO Indication: FALL WITH OCCIPITAL HEAD INJURY. Exposure: One or more of the following individualized dose reduction techniques were utilized for this examination: 1. Automated exposure control 2. Adjustment of the mA and/or kV according to patient size 3. Use of iterative reconstruction technique. Comparison: None are available. Contrast: None HEAD: Posterior fossa is unremarkable. No evidence of acute intracranial hemorrhage or abnormal extra-axial fluid collection. No evidence of mass effect or midline shift. Low-density in the white matter bilaterally, a nonspecific finding, but which is commonly due to chronic small vessel ischemic disease in a patient of this age. Prominence of ventricles and sulci, compatible with involutional change or atrophy. Intracranial arterial calcifications are identified. Low-attenuation in the left occipital lobe, compatible with encephalomalacia or old infarction. Visualized orbits are unremarkable. Visualized paranasal sinuses and mastoids are clear. No acute calvarial abnormality. Impression:Chronic findings as detailed above. Negative for acute intracranial hemorrhage or mass effect. CERVICAL SPINE: C1 ring: Intact Cervico-occipital junction: Intact C1-C2 relationship: Within normal limits Fracture: No acute fracture identified. Spondylosis: Multilevel degenerative spondylosis. Alignment: No significant vertebral body subluxation. Facets: Degenerative changes. No evidence of perched or locked facet. Prevertebral soft tissues: No significant swelling or hematoma Thyroid: Heterogeneous, larger on the right, with at least one small nodule suspected. Lung apices: Clear Impression: Degenerative spondylosis. No acute fracture or subluxation identified.[] Course & Med Decision Making Course & Med Decision Making Pertinent Labs and Imaging studies reviewed. (See chart for details) Medical decision making: No evidence of an acute fracture, no evidence of cauda equina syndrome, no evidence of intracranial mass or bleed nor skull fracture. No evidence of a significant electrolyte abnormality nor anemia that would explain these falls that she has been happening. ED course: Patient arrived, was placed in bed, in tolerated exam well. Patient was transferred to and from x-ray as well as to and from CT with any complications. After return of the imaging findings the c-collar was removed. Patient was able to exhibit a full active range of motion of her neck without any discomfort. Findings were discussed with patient and family who voiced understanding. All questions were answered.[] Dragon Disclaimer Dragon Disclaimer This electronic medical record was generated, in whole or in part, using a voice recognition dictation system. Departure Departure Impression: Primary Impression: Closed head injury Additional Impression: Back pain Referrals: JUAN SANDS MD (PCP) Patient Instructions: Back Pain, Adult, Chronic Pain, Fall Prevention and Home Safety, Head Injury, Adult Additional Instructions: Follow-up with your regular doctor for long-term narcotic prescription within 2 days. Return to the ER if worsening pain or any other concerns. Scripts Fentanyl (DURAGESIC 12mcg/hr) 1 Each Patch.td72 1 PATCH TP Q3DAYS, #5 PATCH Prov: PAMELA GONZALES DO 02/13/18 Problem Qualifiers Primary Impression: Closed head injury Encounter type: initial encounter Qualified Codes: S09.90XA - Unspecified injury of head, initial encounter Additional Impression: Back pain Back pain location: low back pain Chronicity: chronic Back pain laterality : unspecified Sciatica presence: without sciatica Qualified Codes: M54.5 - Low back pain; G89.29 - Other chronic pain PAMELA GONZALES DO Feb 13, 2018 18:36
[2018-02-13 18:53] LABS: BASO % 1 % (0-3); EOS # 0.1 x10^3/uL (0.0-0.7); EOS % 3 % (0-3); HEMATOCRIT 36.8 % (36.0-47.0); HEMOGLOBIN 12.4 g/dL (12.0-15.5); LYMPH % 24 % (24-48); MEAN CORPUSCULAR HEMOGLOBIN 30 pg (25-35); MEAN CORPUSCULAR HGB CONC 34 g/dL (31-37); MEAN CORPUSCULAR VOLUME 89 fL (79-100); MONO # 0.3 x10^3/uL (0.0-1.1); MONO % 8 % (0-9); NEUT # 2.6 x10^3uL (1.8-7.7); NEUT % 64 % (31-73); PLATELET COUNT 207 x10^3/uL (140-400); RED BLOOD COUNT 4.13 x10^6/uL (3.50-5.40); WHITE BLOOD COUNT 4.1 x10^3/uL (4.0-11.0)
[2018-02-13 19:10] LABS: CREATININE 0.8 mg/dL (0.6-1.0); GFR 69.7; POTASSIUM 3.7 mmol/L (3.5-5.1)
[2018-02-13 19:13] LABS: PROTHROMBIN TIME PATIENT 13.2 SEC (11.7-14.0)
[2018-02-13 19:15] LABS: ALBUMIN 3.3 g/dL (3.4-5.0); ALBUMIN/GLOBULIN RATIO 0.9 (1.0-1.7); TOTAL BILIRUBIN 0.2 mg/dL (0.2-1.0)
--- NOTE | 2018-02-13 19:31 | RAD ---
AP pelvis with two-view right hip HISTORY: Right hip pain after a fall. FINDINGS: Right hip joint is intact. There is no evidence of an acute or displaced fracture. Severe primary osteoarthritis at the left hip with severe joint space narrowing, subchondral lucency and sclerosis. There is also flattening and deformity of the left femoral head subchondral surface. There is extensive stool in the visualized abdomen. Lumbar spondylosis. IMPRESSION: 1. No definite acute fracture at the right hip. If of continued concern, consider MRI. 2. Severe primary osteoarthritis of the left hip. Electronically signed by: Steve Zhou MD (02/13/2018 7:27 PM) [facility]
--- NOTE | 2018-02-13 20:32 | RAD ---
CT HEAD AND CERVICAL SPINE WO Indication: FALL WITH OCCIPITAL HEAD INJURY. Exposure: One or more of the following individualized dose reduction techniques were utilized for this examination: 1. Automated exposure control 2. Adjustment of the mA and/or kV according to patient size 3. Use of iterative reconstruction technique. Comparison: None are available. Contrast: None HEAD: Posterior fossa is unremarkable. No evidence of acute intracranial hemorrhage or abnormal extra-axial fluid collection. No evidence of mass effect or midline shift. Low-density in the white matter bilaterally, a nonspecific finding, but which is commonly due to chronic small vessel ischemic disease in a patient of this age. Prominence of ventricles and sulci, compatible with involutional change or atrophy. Intracranial arterial calcifications are identified. Low-attenuation in the left occipital lobe, compatible with encephalomalacia or old infarction. Visualized orbits are unremarkable. Visualized paranasal sinuses and mastoids are clear. No acute calvarial abnormality. Impression:Chronic findings as detailed above. Negative for acute intracranial hemorrhage or mass effect. CERVICAL SPINE: C1 ring: Intact Cervico-occipital junction: Intact C1-C2 relationship: Within normal limits Fracture: No acute fracture identified. Spondylosis: Multilevel degenerative spondylosis. Alignment: No significant vertebral body subluxation. Facets: Degenerative changes. No evidence of perched or locked facet. Prevertebral soft tissues: No significant swelling or hematoma Thyroid: Heterogeneous, larger on the right, with at least one small nodule suspected. Lung apices: Clear Impression: Degenerative spondylosis. No acute fracture or subluxation identified. Electronically signed by: Steve Zhou MD (02/13/2018 8:27 PM) [facility]
--- NOTE | 2018-02-13 20:35 | RAD ---
CT LUMBAR SPINE WO CONTRAST Indication: FALL WITH LOW BACK INJURY Exposure: One or more of the following individualized dose reduction techniques were utilized for this examination: 1. Automated exposure control 2. Adjustment of the mA and/or kV according to patient size 3. Use of iterative reconstruction technique. Comparison: None are available. Contrast: None FINDINGS: Fracture: Severe compression fracture of the T12 vertebral body. Age indeterminate by the images. Other vertebral bodies demonstrate maintained height. Spondylosis: Multilevel degenerative spondylosis, with disc disease. There is at least mild stenosis involving the lower lumbar levels, spinal canal and neural foramina. AlignmentNo significant sagittal plane subluxation. Bones: Spondylolysis is suspected of the right L5.. Paraspinal soft tissues: Unremarkable Visualized aorta: Calcified. There is an endovascular stent identified and presumably the right renal artery. Visualized kidneys: No evidence of obstructive calculus Impression: 1. Severe compression fracture of T12 vertebral body, age indeterminate by imaging. 2. Degenerative spondylosis with stenosis. Electronically signed by: Steve Zhou MD (02/13/2018 8:31 PM) [facility]
--- NOTE | 2018-02-13 20:43 | RAD ---
PORTABLE CHEST 1V History: FALL. Comparison: October 20, 2017 Cardiomediastinal silhouette: Remains enlarged. Probable large hiatal hernia again seen. Lungs: Interstitial opacities are stable. No new airspace consolidation. Pleura: No evidence of pleural effusion. Pneumothorax: None visualized Support Devices: None. Impression: Mild interstitial prominence is stable. No new airspace consolidation. Electronically signed by: Steve Zhou MD (02/13/2018 8:39 PM) [facility] [employer] [facility]
[2018-02-13] MEDS ORDERED: FENT1PAT89 TP (20:48)
[2018-02-13 20:50] VITALS: BP 177/75
== END 2018-02-13 20:55 | disposition home or self-care (01) ==
LOC: ER 18:17
DX: S09.90XA Unspecified injury of head, initial encounter (principal); M54.5 Low back pain; G89.29 Other chronic pain; M16.12 Unilateral primary osteoarthritis, left hip; M47.812 Spondylosis without myelopathy or radiculopathy, cervical region; K21.9 Gastro-esophageal reflux disease without esophagitis; I10 Essential (primary) hypertension; Z98.890 Other specified postprocedural states; Z88.5 Allergy status to narcotic agent; W18.39XA Other fall on same level, initial encounter; Y93.89 Activity, other specified; Y92.89 Other specified places as the place of occurrence of the external cause; Y99.8 Other external cause status
CPT/HCPCS: 36415; 70450; 71045; 72125; 72131; 73502; 80053; 85025; 85610; 99284-25